=== PATIENT | female | born 1965 | race African-American/Black ===

== ENCOUNTER → 2016-10-09 | Outpatient (CLI) | payer OTHER ==
--- NOTE | 2016-10-09 16:57 | WOMENS IMAGING REPORT ---
EXAM DESCRIPTION: BILAT SCREENING MAMMO W/CAD COMPLETED DATE/TIME: 10/09/2016 11:37 am REASON FOR STUDY: Z12.31 ROUTINE SCREENING MAMMO Z12.31 ENCNTR SCREEN MAMMOGRAM FOR MALIGNANT NEOPL ASM OF DEBBIE COMPARISON: Multiple since 2008 TECHNIQUE: Standard craniocaudal and mediolateral oblique views of each breast recorded using p3dsystemsa l acquisition. LIMITATIONS: None. FINDINGS: Findings present which are benign by mammographic criteria. No suspicious masses, calcifi cations or architectural distortion. Read with the assistance of CAD. .[facility] - R2 Cenova Version 1.3 .[facility] Imaging - R2 Cenova Version 1.[address] Imaging - R2 Cenova Version 2.4 .[facility] - R2 Cenova Version 2.4 .[facility] - R2 Cost Reduction Engineer Version 9.2 Benign mammographic findings may include one or more of the following: Smooth masses, popcorn/rim/co arse calcifications, asymmetries, post-procedure changes, and lesions with long-standing stability. BREAST DENSITY: b. There are scattered areas of fibroglandular density. BIRAD: 2 BENIGN FINDING(S) RECOMMENDATION: ROUTINE SCREENING COMMENT: PATIENT NOTIFIED BY LETTER. The [employer] recommends an annual screening mammogram for women aged 40 years or over. Each patient will receive a reminder prior to the anniversary date of her mammogram. The [employer] (ACR) has developed recommendations for screening MRI of the breast s in certain patient populations, to be used in conjunction with mammography. Breast MRI surveillanc e may be appropriate for women with more than 20% lifetime risk of developing breast cancer as deter mined by genetic testing, significant family history of the disease, or history of mantle radiation f or Hodgkins Disease. ACR Practice Guidelines 2008. TECHNICAL DOCUMENTATION: FINDING NUMBER: (1) ASSESSMENT: (1) JOB ID: [id number] [employer]- All Rights Reserved
== END ==
LOC: WI 11:14
PROVIDERS: ATTEND Surgery
DX: Z12.31 Encounter for screening mammogram for malignant neoplasm of breast (principal)
CPT/HCPCS: 77067; G0202

== ENCOUNTER → 2017-10-14 | Outpatient (CLI) | payer OTHER ==
--- NOTE | 2017-10-14 13:45 | WOMENS IMAGING REPORT ---
EXAM DESCRIPTION: BILAT SCREENING MAMMO W/CAD COMPLETED DATE/TIME: 10/14/2017 1:29 pm REASON FOR STUDY: ROUTINE SCREENING; Z12.31 Z12.31 ENCNTR SCREEN MAMMOGRAM FOR MALIGNANT NEOPLASM O F DEBBIE COMPARISON: [id number] TECHNIQUE: Standard craniocaudal and mediolateral oblique views of each breast recorded using Adbongoa l acquisition. LIMITATIONS: None. FINDINGS: No masses, calcifications or architectural distortion. No areas of suspicion. Read with the assistance of CAD. .[facility] - R2 Cenova Version 1.3 .[facility] Imaging - R2 Cenova Version 1.3 .[facility] Imaging - R2 Cenova Version 2.4 .[facility] [place] - R2 Cenova Version 2.4 .[facility] - R2 Labor Mediator Version 9.2 IMPRESSION: NORMAL MAMMOGRAM. BIRADS 1. BREAST DENSITY: b. There are scattered areas of fibroglandular density. BIRAD: 1 NEGATIVE RECOMMENDATION: ROUTINE SCREENING COMMENT: The patient has been notified of the results by letter per SA requirements. Additional no tification policies are in place for contacting patient with suspicious or incomplete findings. Quality ID #[id number]: The [employer] recommends an annual screening mammogram for women aged 40 years or over. This facility utilizes a reminder system to ensure that all patients receive reminder letters, and/or direct phone calls for appointments. This includes reminders for routine scr eening mammograms, diagnostic mammograms, or other Breast Imaging Interventions when appropriate. Th is patient will be placed in the appropriate reminder system. The [employer] (ACR) has developed recommendations for screening MRI of the breast s in certain patient populations, to be used in conjunction with mammography. Breast MRI surveillanc e may be appropriate for women with more than 20% lifetime risk of developing breast cancer as deter mined by genetic testing, significant family history of the disease, or history of mantle radiation f or Hodgkins Disease. ACR Practice Guidelines 2008. TECHNICAL DOCUMENTATION: FINDING NUMBER: (1) ASSESSMENT: (1) JOB ID: [id number] [employer]- All Rights Reserved
== END ==
LOC: WI 13:07
PROVIDERS: ATTEND Surgery
DX: Z12.31 Encounter for screening mammogram for malignant neoplasm of breast (principal)
CPT/HCPCS: 77067

== ENCOUNTER → 2017-12-18 | Outpatient (CLI) | payer OTHER ==
--- NOTE | 2017-12-18 09:21 | RADIOLOGY REPORT (SQ) ---
EXAM DESCRIPTION: CHEST PA/LATERAL COMPLETED DATE/TIME: 12/18/2017 9:06 am REASON FOR STUDY: TUBERCULOSIS OF LUNG COMPARISON: None. EXAM PARAMETERS: NUMBER OF VIEWS: two views TECHNIQUE: Digital Frontal and Lateral radiographic views of the chest acquired. RADIATION DOSE: NA LIMITATIONS: none FINDINGS: LUNGS AND PLEURA: No opacities, masses or pneumothorax. No pleural effusion. MEDIASTINUM AND HILAR STRUCTURES: No masses or contour abnormalities. HEART AND VASCULAR STRUCTURES: Heart normal size. No evidence for failure. BONES: No acute findings. HARDWARE: None in the chest. OTHER: No other significant finding. IMPRESSION: NO SIGNIFICANT RADIOGRAPHIC FINDING IN THE CHEST. TECHNICAL DOCUMENTATION: JOB ID: [id number] [employer]- All Rights Reserved Reading location - IP/workstation name: [email or web address]
== END ==
LOC: OD 08:54
PROVIDERS: ATTEND Internal Medicine
DX: A15.0 Tuberculosis of lung (principal)
CPT/HCPCS: 71046

== ENCOUNTER 2018-02-13 20:00 | Emergency (ER) | payer OTHER ==
--- NOTE | 2018-02-13 21:40 | ER Document Report ---
ED GI/ - General Chief Complaint: Vaginal Bleeding Stated Complaint: VAGINAL BLEEDING, DIZZY Time Seen by Provider: 02/13/18 21:36 Notes: The patient is a 52-year-old female, past medical history hysterectomy, presents with 4 hours of vaginal bleeding. She has not had recent intercourse and now a blood thinners. Denies lightheadedness, syncope or dysuria. TRAVEL OUTSIDE OF THE [place] IN LAST 30 DAYS: No - Related Data Allergies/Adverse Reactions: adhesive tape [Adhesive Tape] Allergy (Unknown, Verified 03/20/11 06:24) iodine [Iodine] Allergy (Unknown, Verified 03/20/11 06:23) Penicillins Allergy (Unknown, Verified 03/20/11 06:22) Shellfish * [Shellfish] Allergy (Unknown, Verified 03/20/11 06:24) Sulfa (Sulfonamide Antibiotics) Allergy (Unknown, Verified 03/20/11 06:23) tramadol [Tramadol] Adverse Reaction (Verified 04/22/15 04:11) Facial swelling beestings Allergy (Uncoded 02/13/18 20:03) Past Medical History - General Information source: Patient - Social History Smoking Status: Unknown if Ever Smoked Family History: Reviewed & Not Pertinent - Past Medical History Cardiac Medical History: Denies: Hx Coronary Artery Disease, Hx Heart Attack, Hx Hypertension Pulmonary Medical History: Denies: Hx Asthma, Hx Bronchitis, Hx COPD, Hx Pneumonia Neurological Medical History: Reports: Hx Cerebrovascular Accident, Hx Seizures - LAST SEIZURE 04/11/11 Musculoskeltal Medical History: Reports Hx Arthritis Past Surgical History: Reports: Hx Hysterectomy, Hx Orthopedic Surgery. Denies : Hx Pacemaker - Immunizations Immunizations up to date: Yes Hx Diphtheria, Pertussis, Tetanus Vaccination: No Review of Systems - Review of Systems Notes: REVIEW OF SYSTEMS: CONSTITUTIONAL: -fevers, -chills EENT: -eye pain, -difficulty swallowing, -nasal congestion CARDIOVASCULAR: -chest pain, -syncope. RESPIRATORY: -cough, -SOB GASTROINTESTINAL: -abdominal pain, -nausea, -vomiting, -diarrhea GENITOURINARY: -dysuria, -hematuria, +vaginal bleeding MUSCULOSKELETAL: -back pain, -neck pain SKIN: -rash or skin lesions. HEMATOLOGIC: -easy bruising or bleeding. LYMPHATIC: -swollen, enlarged glands. NEUROLOGICAL: -altered mental status or loss of consciousness, -headache, - neurologic symptoms PSYCHIATRIC: -anxiety, -depression. ALL OTHER SYSTEMS REVIEWED AND NEGATIVE. Physical Exam - Vital signs Vitals: Temp Pulse Resp BP Pulse Ox 98.5 F 78 16 146/86 H 97 02/13/18 20:10 02/13/18 20:10 02/13/18 20:10 02/13/18 20:10 02/13/18 20:10 - Notes Notes: PHYSICAL EXAMINATION: GENERAL: Well-appearing, well-nourished and in no acute distress. HEAD: Atraumatic, normocephalic. EYES: Pupils equal round and reactive to light, extraocular movements intact, sclera anicteric, conjunctiva are normal. ENT: nares patent, oropharynx clear without exudates. Moist mucous membranes. NECK: Normal range of motion, supple without lymphadenopathy LUNGS: Breath sounds clear to auscultation bilaterally and equal. No wheezes rales or rhonchi. HEART: Regular rate and rhythm without murmurs ABDOMEN: Soft, nontender, normoactive bowel sounds. No guarding, no rebound. No masses appreciated. : No vaginal bleeding, no lacerations, non-tender adnexa or suprapubic region EXTREMITIES: Normal range of motion, no pitting or edema. No cyanosis. NEUROLOGICAL: Cranial nerves grossly intact. Normal speech, normal gait. Normal sensory and motor exams. PSYCH: Normal mood, normal affect. SKIN: Warm, Dry, normal turgor, no rashes or lesions noted. Course - Re-evaluation Re-evalutation: Patient with no vaginal bleeding and no tenderness. She does not have a uterus. Hemoglobin is normal and blood work is unremarkable, other than slight hypokalemia. Provide her with follow-up at [facility] for further evaluation and treatment. - Vital Signs Vital signs: Temp Pulse Resp BP Pulse Ox 98.5 F 78 16 146/86 H 97 02/13/18 20:10 02/13/18 20:10 02/13/18 20:10 02/13/18 20:10 02/13/18 20:10 - Laboratory Result Diagrams: 02/13/18 21:30 02/13/18 21:30 Laboratory results interpreted by me: 02/13/18 02/13/18 21:30 21:30 Hgb 11.4 L Hct 35.2 L MCV 79 L MCH 25.5 L RDW 15.9 H Potassium 3.4 L Discharge - Discharge Clinical Impression: Vaginal bleeding Condition: Stable Disposition: HOME, SELF-CARE Additional Instructions: VAGINAL BLEEDING: You are having an episode of abnormal bleeding. Causes of abnormal vaginal bleeding can include miscarriage or tubal , tumors such as cancer or benign fibroids, medication effects, or hormone imbalance. Testing can eliminate unsuspected , tumors, or infection as a cause. "Dysfunctional uterine bleeding" is due to hormone imbalance, and is especially common at times when the normal cycle is disturbed -- whether by recent , use of control pills or hormones, or impending menopause. If the bleeding is innocent, most commonly a short course of hormones is given to restore the uterus to normal. Sometimes, the normal menstrual cycle corrects itself naturally. Sometimes , brief hormone therapy, or even a D&C is required. Your physician will advise you. Treatment for anemia may be required if bleeding is severe. You should rest and avoid intercourse until the bleeding is controlled. Call the doctor or return for re-examination if you feel faint, have increasing pain, or have a major increase in the amount of bleeding. NORMAL EXAM AND WORKUP: At this time, except for vaginal bleeding, your examination and workup show no significant abnormality. No significant abnormal physical findings were noted. All laboratory, EKG, and imaging (x-ray, CT scans, ultrasound) studies that were ordered show no significant abnormality. Although your examination and all studies that were ordered showed no significant abnormal finding, there are no examinations and no studies that are 100% accurate. There is always the possibility that some abnormality could exist and not be detected with physical examination or within the limits and capabilities of laboratory and other studies. You should return or follow up as you were instructed on your visit today for further evaluation if your symptoms do not resolve. FOLLOW-UP CARE: If you have been referred to a physician for follow-up care, call the physician s office for an appointment as you were instructed or within the next two days. If you experience worsening or a significant change in your symptoms (very heavy bleeding with large clots of blood, passage of tissue, more severe abdominal / pelvic pain or cramping, feeling faint or severe weakness, fever, etc.), notify the physician immediately or return to the Emergency Department at any time for re-evaluation. OBSTETRIC-GYNECOLOGIC ([facility]ICAL [facility]) [facility]IANS [facility] [place]: The [address] [place] [phone] [facility] [address] [place], [place] [phone] Forms: Elevated Blood Pressure Referrals: GILMER EVANS MD [Primary Care Provider] - Follow up as needed PENNY JUNIOR MD [ACTIVE STAFF] - Follow up as needed
[2018-02-13 21:49] LABS: ABSOLUTE BASOPHILS # (AUTO) 0.1 10^3/uL (0.0-0.2); ABSOLUTE EOSINOPHILS # (AUTO) 0.2 10^3/uL (0.0-0.6); ABSOLUTE LYMPHOCYTES (AUTO) 2.4 10^3/uL (0.5-4.7); ABSOLUTE MONOCYTES (AUTO) 0.7 10^3/uL (0.1-1.4); ABSOLUTE NEUT (AUTO) 4.4 10^3/uL (1.7-8.2); BASOPHILS % (AUTO) 0.7 % (0-2); HEMATOCRIT 35.2 % (36.0-47.0); HEMOGLOBIN 11.4 g/dL (12.0-15.5); LYMPHOCYTES % (AUTO) 31.3 % (13-45); MEAN CORPUSCULAR HEMOGLOBIN 25.5 pg (27.0-33.4); MEAN CORPUSCULAR HGB CONC 32.4 g/dL (32.0-36.0); MEAN CORPUSCULAR VOLUME 79 fl (80-97); MONOCYTES % (AUTO) 8.8 % (3-13); PLATELET COUNT 253 10^3/uL (150-450); RED BLOOD COUNT 4.48 10^6/uL (3.72-5.28); RED CELL DISTRIBUTION WIDTH 15.9 % (11.5-14.0); SEGMENTED NEUTROPHILS % (AUTO) 56.2 % (42-78); TOTAL CELLS COUNTED % (AUTO) 100 %; WHITE BLOOD COUNT 7.8 10^3/uL (4.0-10.5)
[2018-02-13 21:53] LABS: ANION GAP 11 (5-19); BLOOD UREA NITROGEN 14 mg/dL (7-20); CALCIUM 9.5 mg/dL (8.4-10.2); CARBON DIOXIDE 29 mmol/L (22-30); CHLORIDE 103 mmol/L (98-107); GLUCOSE 92 mg/dL (75-110); POTASSIUM 3.4 mmol/L (3.6-5.0); SODIUM 142.9 mmol/L (137-145)
[2018-02-13 22:13] VITALS: BP 150/8
== END 2018-02-13 22:10 | disposition home or self-care (01) ==
LOC: ER 20:00
DX: N93.9 Abnormal uterine and vaginal bleeding, unspecified (principal); E87.6 Hypokalemia; Z90.710 Acquired absence of both cervix and uterus; Z91.048 Other nonmedicinal substance allergy status; Z88.0 Allergy status to penicillin; Z88.2 Allergy status to sulfonamides; Z91.030 Bee allergy status; Z91.013 Allergy to seafood
CPT/HCPCS: 36415; 80048; 85025; 99284

== ENCOUNTER → 2018-02-14 | Outpatient (CLI) | payer OTHER ==
--- NOTE | 2018-02-14 10:14 | RADIOLOGY REPORT (SQ) ---
EXAM DESCRIPTION: CT ABD/PELVIS NO ORAL OR IV COMPLETED DATE/TIME: 02/14/2018 10:05 am REASON FOR STUDY: HEMATURIA (R31.9) R31.9 HEMATURIA, UNSPECIFIED COMPARISON: 04/04/2015. TECHNIQUE: CT scan of the abdomen and pelvis performed without intravenous or oral contrast. Images reviewed with lung, soft tissue, and bone windows. Reconstructed coronal and sagittal MPR images revi ewed. All images stored on PACS. All CT scanners at this facility use dose modulation, iterative reconstruction, and/or weight based d osing when appropriate to reduce radiation dose to as low as reasonably achievable (ALARA). [facility]: Dose Right [facility]: CareDose [facility]: Dose Right [facility]: Teradose 4D [facility]: Smart Technologies RADIATION DOSE: CT Rad equipment meets quality standard of care and radiation dose reduction techniq ues were employed. CTDIvol: 8.1 mGy. DLP: 452 mGy-cm.mGy. LIMITATIONS: None. FINDINGS: LOWER CHEST: No significant findings. No nodules or infiltrates. NON-CONTRASTED LIVER, SPLEEN, ADRENALS: Evaluation limited by lack of IV contrast. No identified sign ificant masses. PANCREAS: No masses. No peripancreatic inflammatory changes. GALLBLADDER: Surgically absent. RIGHT KIDNEY AND URETER: No suspicious masses. Assessment limited by lack of IV contrast. No signif icant calcifications. No hydronephrosis or hydroureter. LEFT KIDNEY AND URETER: No suspicious masses. Assessment limited by lack of IV contrast. No signifi cant calcifications. No hydronephrosis or hydroureter. AORTA AND RETROPERITONEUM: No aneurysm. No retroperitoneal masses or adenopathy. BOWEL AND PERITONEAL CAVITY: No obvious masses or inflammatory changes. No free fluid. APPENDIX: Normal. PELVIS, BLADDER, AND ABDOMINAL WALL:Colonic diverticulosis. No abnormal masses. No free fluid. Bladd er normal. BONES: No significant findings. OTHER: No other significant finding. IMPRESSION: COLONIC DIVERTICULOSIS. NO CT FINDINGS OF DIVERTICULITIS. NO OTHER SIGNIFICANT OR ACUT E PROCESS IN THE ABDOMEN OR PELVIS. COMMENT: Quality ID # [id number]: Final reports with documentation of one or more dose reduction techniques (e.g., Automated exposure control, adjustment of the mA and/or kV according to patient size, use of iterative reconstruction technique) TECHNICAL DOCUMENTATION: JOB ID: [id number] [employer]- All Rights Reserved Reading location - IP/workstation name: [email or web address]
== END ==
LOC: RAD 09:41
PROVIDERS: ATTEND Internal Medicine
DX: R31.9 Hematuria, unspecified (principal); K57.30 Diverticulosis of large intestine without perforation or abscess without bleeding
CPT/HCPCS: 74176

== ENCOUNTER → 2018-11-22 | Outpatient (CLI) | payer OTHER ==
--- NOTE | 2018-11-22 10:43 | RADIOLOGY REPORT (SQ) ---
EXAM DESCRIPTION: CT HEAD WITHOUT COMPLETED DATE/TIME: 11/22/2018 9:27 am REASON FOR STUDY: HEADACHE R51 HEADACHE COMPARISON: None. TECHNIQUE: Axial images acquired through the brain without intravenous contrast. Images reviewed wi th bone, brain and subdural windows. Additional sagittal and coronal reconstructions were generated. Images stored on PACS. All CT scanners at this facility use dose modulation, iterative reconstruction, and/or weight based d osing when appropriate to reduce radiation dose to as low as reasonably achievable (ALARA). [facility]: Dose Right [facility]: CareDose [facility]: Dose Right [facility]: Teradose 4D [facility]: [email or web address] RADIATION DOSE: CT Rad equipment meets quality standard of care and radiation dose reduction techniq ues were employed. CTDIvol: 53.2 mGy. DLP: 911 mGy-cm. mGy. LIMITATIONS: None. FINDINGS: VENTRICLES: Normal size and contour. CEREBRUM: No masses. No hemorrhage. No midline shift. No evidence for acute infarction. Normal gra y/white matter differentiation. No areas of low density in the white matter. CEREBELLUM: No masses. No hemorrhage. No alteration of density. No evidence for acute infarction. EXTRAAXIAL SPACES: No fluid collections. No masses. ORBITS AND GLOBE: No intra- or extraconal masses. Normal contour of globe without masses. CALVARIUM: No fracture. PARANASAL SINUSES: No fluid or mucosal thickening. SOFT TISSUES: No mass or hematoma. OTHER: No other significant finding. IMPRESSION: NORMAL BRAIN CT WITHOUT CONTRAST. EVIDENCE OF ACUTE STROKE: NO. COMMENT: Quality ID # [id number]: Final reports with documentation of one or more dose reduction techniques (e.g., Automated exposure control, adjustment of the mA and/or kV according to patient size, use of iterative reconstruction technique) TECHNICAL DOCUMENTATION: JOB ID: [id number] [employer]- All Rights Reserved Reading location - IP/workstation name: [email or web address]
== END ==
LOC: RAD 09:02
PROVIDERS: ATTEND Internal Medicine
DX: R51 Headache (principal)
CPT/HCPCS: 70450

== ENCOUNTER 2018-12-11 22:36 | Emergency (ER) | payer OTHER ==
--- NOTE | 2018-12-12 01:20 | ER Document Report ---
ED General - General Chief Complaint: Syncope Stated Complaint: FALL RIGHT SHOULDER Time Seen by Provider: 12/12/18 01:18 Primary Care Provider: GILMER EVANS MD [Primary Care Provider] - 12/15/18 Notes: Patient is a 53-year-old female who presents with complaint of syncopal episode. Patient says that she had gotten home from basketball game. She said she took a shower. She said when she got the shower started to feel hot and sweaty and unwell. She then felt a sudden pop in her head and severe pain in her head and then passed out. Family came over and found her laying on the bed. They then called able to do brought here. She cannot member the exact time that the headache and syncopal episode occurred. She says she now has a headache as well as pain in the left shoulder and left elbow. She has had previous passing out episodes however is been a couple years since the last time she had a passing out episode. She also says that she had little numbness going into her left arm when tonight's episode occurred. She denies chest pain or shortness of breath. No other complaints at this time. TRAVEL OUTSIDE OF THE [place] IN LAST 30 DAYS: No - Related Data Allergies/Adverse Reactions: adhesive tape [Adhesive Tape] Allergy (Unknown, Verified 03/20/11 06:24) iodine [Iodine] Allergy (Unknown, Verified 03/20/11 06:23) Penicillins Allergy (Unknown, Verified 03/20/11 06:22) Shellfish * [Shellfish] Allergy (Unknown, Verified 03/20/11 06:24) Sulfa (Sulfonamide Antibiotics) Allergy (Unknown, Verified 03/20/11 06:23) tramadol [Tramadol] Adverse Reaction (Verified 04/22/15 04:11) Facial swelling beestings Allergy (Uncoded 02/13/18 20:03) Past Medical History - Social History Smoking Status: Never Smoker Frequency of alcohol use: None Drug Abuse: None Family History: Reviewed & Not Pertinent - Past Medical History Cardiac Medical History: Denies: Hx Coronary Artery Disease, Hx Heart Attack, Hx Hypertension Pulmonary Medical History: Denies: Hx Asthma, Hx Bronchitis, Hx COPD, Hx Pneumonia Neurological Medical History: Reports: Hx Cerebrovascular Accident, Hx Seizures - LAST SEIZURE 04/11/11 Renal/ Medical History: Denies: Hx Peritoneal Dialysis Musculoskeletal Medical History: Reports Hx Arthritis Past Surgical History: Reports: Hx Hysterectomy, Hx Orthopedic Surgery. Denies: Hx Pacemaker - Immunizations Immunizations up to date: Yes Hx Diphtheria, Pertussis, Tetanus Vaccination: No Review of Systems - Review of Systems Notes: My Normal Review Basic REVIEW OF SYSTEMS: CONSTITUTIONAL : Denies fever, chills, or sweats. Denies recent illness. EENT: Denies eye, ear, throat, or mouth pain or symptoms. Denies nasal or sinus congestion. CARDIOVASCULAR: Denies chest pain. RESPIRATORY: Denies cough, cold, or chest congestion. Denies shortness of claudio ath, difficulty breathing, or wheezing. GASTROINTESTINAL: Denies abdominal pain. Denies nausea, vomiting, or diarrhea. MUSCULOSKELETAL: Denies neck or back pain or joint pain or swelling. SKIN: Denies rash or skin lesions. HEMATOLOGIC : Denies easy bruising or bleeding. LYMPHATIC: Denies swollen, enlarged glands. NEUROLOGICAL: Had a syncopal episode. Has a headache. Denies weakness or p aralysis or loss of use of either side. Denies problems with gait or speech. Had some brief numbness to the left arm which has since resolved. ALL OTHER SYSTEMS REVIEWED AND NEGATIVE. Physical Exam - Vital signs Vitals: Resp BP Pulse Ox 20 136/85 H 100 12/11/18 23:00 12/11/18 23:00 12/11/18 23:00 - Notes Notes: General Appearance: Well nourished, alert, cooperative, no acute distress, moderate obvious discomfort. Vitals: reviewed, See vital signs table. Head: no swelling or tenderness to the head Eyes: PERRL, EOMI, Conjuctiva clear Mouth: No decreasd moisture Lungs: No wheezing, No rales, No rhonci, No accessory muscle use, good air exchange bilaterally. Heart: Normal rate, Regular rythm, No murmur, no rub Abdomen: Normal BS, soft, No rigidity, No abdominal tenderness, No guarding, no rebound, no abdominal masses, no organomegaly Extremities: strength 5/5 in all extremities, good pulses in all extremities, no swelling or tenderness in the extremities with exception of pain to palpation over lateral left elbow and pain over proximal humerus and left shoulder. She is able to put shoulder and elbow with range of motion but does have some pain in doing so. No pain into the hand or wrist. Other 3 extremities are nontender., no edema. Skin: warm, dry, appropriate color, no rash Neuro: speech clear, oriented x 3, normal affect, responds appropriately to questions. Cranial nerves II through XII are intact. Distal sensation intact. Course - Re-evaluation Re-evalutation: 12/12/18 01:36 Patient symptoms are concerning for potential subarachnoid hemorrhage. I therefore ordered a CT scan and informed the charge nurse to have the patient sent over for CT scan immediately. 12/12/18 03:22 Scan of the head is negative. I talked to the patient prior to give her any medications to explain to her that we need to do further testing for rule out possibility of subarachnoid hemorrhage. I informed her that CT scan without contrast is not 100% ruling out subarachnoid hemorrhage when is not done within the first 3-4 hours. It is difficult to tell if this scan was within the first 3-4 hours by suspect is not based on patient's history. I informed the patient that there is too for the test we can do. I informed her CT of the head can be performed. Informed her this is sensitive ruling out cerebral aneurysm but not 100% sensitive in ruling out subarachnoid hemorrhage. I informed her that the one test that is 100% sensitive his lumbar puncture and as well recommend. Patient says absolutely no to a lumbar puncture. She says she is familiar with what the test is and does not want this performed. She says that she would rather go forward with a CTA even though is not 100% sensitive. We will treat the patient's headache. We will go forward with a CT of the head. 12/12/18 06:49 CT of the head was negative. After treatment of the headache with medications it is gone. Says he feels much better. Patient again is aware that the only test 100% sensitive to rule out subarachnoid hemorrhage is a lumbar puncture. She said she would certainly not consider lumbar puncture. She is feeling well and looks well. This time will discharge home by strongly encouraged to return to ER immediately if she has any recurrent episodes of passing out, recurrent headaches, or feels unwell in any way. Patient agrees with plan and will be discharged home. Dictation of this chart was performed using voice recognition software; therefore, there may be some unintended grammatical errors. - Vital Signs Vital signs: Temp Pulse Resp BP Pulse Ox 98.5 F 15 97/55 L 99 12/11/18 23:01 12/12/18 05:40 12/12/18 05:40 12/12/18 05:40 - Laboratory Result Diagrams: 12/11/18 22:50 12/11/18 22:50 Laboratory results interpreted by me: 12/11/18 12/11/18 22:50 22:50 MCV 79 L MCH 26.3 L RDW 15.3 H Potassium 3.3 L Est GFR (Non-Af Amer) 54 L Calcium 10.3 H - EKG Interpretation by Me Additional EKG results interpreted by me: 12/12/18 01:19 EKG is reviewed and interpreted by me. EKG shows sinus rhythm with a rate of [address] segment elevation or depression. Patient has some deep T wave inversions in leads V3 however she has similar inversions from her previous EKG from April 21, 2015. MO interval, QRS duration, QT intervals are within normal range. Discharge - Discharge Clinical Impression: Syncope Qualifiers: Syncope type: unspecified Qualified Code(s): R55 - Syncope and collapse Headache Qualifiers: Headache type: unspecified Headache chronicity pattern: acute headache Intractability: not intractable Qualified Code(s): R51 - Headache Arm contusion Qualifiers: Encounter type: initial encounter Laterality: left Qualified Code(s): S40.022A - Contusion of left upper arm, initial encounter Condition: Good Disposition: HOME, SELF-CARE Additional Instructions: Please rest over the next 24 hours. Please drink clear liquids. Please return to the ER if you have recurrent headaches, any chest pain, or recurrent episodes of passing out. Your CT scan of your head today did not show any evidence of an aneurysm. As discussed with you this is not 100% sensitive in ruling out a small bleed and therefore you need to have a low threshold to return to the ER for any recurrence of your symptoms.Please follow up with your doctor on Saturday for reevaluation. Referrals: GILMER EVANS MD [Primary Care Provider] - 12/15/18
[2018-12-12 01:43] LABS: ABSOLUTE EOSINOPHILS # (AUTO) 0.1 10^3/uL (0.0-0.6); ABSOLUTE LYMPHOCYTES (AUTO) 1.8 10^3/uL (0.5-4.7); ABSOLUTE MONOCYTES (AUTO) 0.9 10^3/uL (0.1-1.4); ABSOLUTE NEUT (AUTO) 6.1 10^3/uL (1.7-8.2); BASOPHILS % (AUTO) 0.5 % (0-2); EOSINOPHILS % (AUTO) 0.8 % (0-6); HEMATOCRIT 36.1 % (36.0-47.0); HEMOGLOBIN 12.1 g/dL (12.0-15.5); LYMPHOCYTES % (AUTO) 20.6 % (13-45); MEAN CORPUSCULAR HEMOGLOBIN 26.3 pg (27.0-33.4); MEAN CORPUSCULAR HGB CONC 33.4 g/dL (32.0-36.0); MEAN CORPUSCULAR VOLUME 79 fl (80-97); MONOCYTES % (AUTO) 9.6 % (3-13); PLATELET COUNT 292 10^3/uL (150-450); RED CELL DISTRIBUTION WIDTH 15.3 % (11.5-14.0); SEGMENTED NEUTROPHILS % (AUTO) 68.5 % (42-78); TOTAL CELLS COUNTED % (AUTO) 100 %; WHITE BLOOD COUNT 8.9 10^3/uL (4.0-10.5)
[2018-12-12 01:52] LABS: ANION GAP 13 (5-19); BLOOD UREA NITROGEN 19 mg/dL (7-20); CALCIUM 10.3 mg/dL (8.4-10.2); CARBON DIOXIDE 29 mmol/L (22-30); CHLORIDE 99 mmol/L (98-107); GLUCOSE 106 mg/dL (75-110); POTASSIUM 3.3 mmol/L (3.6-5.0); SODIUM 140.5 mmol/L (137-145)
[2018-12-12 02:05] LABS: INTERNATIONAL RATION (INR) 0.92; PROTHROMBIN TIME 12.8 SEC (11.4-15.4)
[2018-12-12 02:06] LABS: PARTIAL THROMBOPLASTIN TIME 25.8 SEC (23.5-35.8)
--- NOTE | 2018-12-12 02:13 | RADIOLOGY REPORT (SQ) ---
EXAM DESCRIPTION: CT HEAD WITHOUT IV CONTRAST COMPLETED DATE/TME: 12/12/2018 01:34 CLINICAL HISTORY: 53 years, Female, headache COMPARISON: CT head 11/22/2018 TECHNIQUE: Axial images of the head were performed without the use of intravenous contrast, with sagittal and coronal reformatted images. Images stored on PACS. All CT scanners at this facility use dose modulation, iterative reconstruction, and/or weight based dosing when appropriate to reduce radiation dose to as low as reasonably achievable (ALARA). [facility]: Dose Right [facility]: CareDose [facility]: Dose Right [facility]: Teradose 4D [facility]: Code Scouts LIMITATIONS: None. FINDINGS: No evidence of acute hemorrhage or infarct. No evidence of mass or hydrocephalus. The visualized paranasal sinuses are clear. There is no significant change, as compared with the prior CT scan. IMPRESSION: No acute finding. TECHNICAL DOCUMENTATION: Quality ID # [id number]: Final reports with documentation of one or more dose reduction techniques (e.g., Automated exposure control, adjustment of the mA and/or kV according to patient size, use of iterative reconstruction technique) copyright 2011 [employer]- All Rights Reserved
[2018-12-12] MEDS ORDERED: NORMAL SALINE 1000 ML 1,000 ML IV ONE (03:21)
[2018-12-12] MEDS ORDERED: DIPHENHYDRAMINE HCL 50 MG/ML VIAL IV ONE (03:21)
[2018-12-12] MEDS ORDERED: METOCLOPRAMIDE HCL INJ/PF 10 MG/2 ML SDV IV ONE (03:22)
--- NOTE | 2018-12-12 03:31 | RADIOLOGY REPORT (SQ) ---
EXAM DESCRIPTION: XR ELBOW 1-2 VIEWS COMPLETED DATE/TME: 12/12/2018 01:35 CLINICAL HISTORY: 53 years, Female, trauma COMPARISON: None. NUMBER OF VIEWS: Four TECHNIQUE: Four views of the left elbow LIMITATIONS: None. FINDINGS: There is no acute fracture or dislocation. There is no joint effusion. No radiopaque foreign body. IMPRESSION: No acute fracture or dislocation copyright 2010 [employer]- All Rights Reserved
--- NOTE | 2018-12-12 03:32 | RADIOLOGY REPORT (SQ) ---
EXAM DESCRIPTION: XR SHOULDER 2 OR MORE VIEWS COMPLETED DATE/TME: 12/11/2018 22:49 CLINICAL HISTORY: 53 years, Female, fall COMPARISON: None. NUMBER OF VIEWS: Three TECHNIQUE: Three views of left shoulder LIMITATIONS: None. FINDINGS: There is no acute fracture or dislocation. No large soft tissue swelling. The glenohumeral and AC joints appear intact. IMPRESSION: No acute fracture or dislocation copyright 2010 [employer]- All Rights Reserved
[2018-12-12] MEDS ORDERED: METHYLPREDNISOLONE INJ 125 MG/2 ML SDV IV ONE (05:14)
[2018-12-12] MEDS ORDERED: FAMOTIDINE INJ/PF 20 MG/2 ML SDV IV ONE (05:14)
--- NOTE | 2018-12-12 06:17 | RADIOLOGY REPORT (SQ) ---
EXAM DESCRIPTION: CT HEAD ANGIOGRAPHY WITH IV CONTRAST COMPLETED DATE/TME: 12/12/2018 03:21 CLINICAL HISTORY: 53 years Female, headache COMPARISON: 12/12/18 TECHNIQUE: IV contrast. Coronal and sagittal reformat. This exam was performed according to our departmental dose-optimization program, which includes automated exposure control, adjustment of the mA and/or kV according to patient size and/or use of iterative reconstruction technique. FINDINGS: No hemorrhage or infarct. No mass, mass effect, or midline shift. No enhancement abnormality. Brain and extra-axial structures appear otherwise intact. IMPRESSION: No acute findings.
--- NOTE | 2018-12-12 08:02 | EKG REPORT ---
SEVERITY:- ABNORMAL ECG - SINUS RHYTHM NONSPECIFIC T ABNORMALITIES, DIFFUSE LEADS : Confirmed by: Surinder James MD 12-Dec-2018 08:01:05
[2018-12-12 08:04] VITALS: BP 108/68
== END 2018-12-12 07:35 | disposition home or self-care (01) ==
LOC: ER 22:36
DX: R55 Syncope and collapse (principal); R51 Headache; S40.022A Contusion of left upper arm, initial encounter; W19.XXXA Unspecified fall, initial encounter; Z88.0 Allergy status to penicillin; Z88.6 Allergy status to analgesic agent; Z88.2 Allergy status to sulfonamides; Z91.013 Allergy to seafood; Z90.710 Acquired absence of both cervix and uterus
CPT/HCPCS: 93005; 99284; 36415; 85025; 85610; 85730; 80048; 73070; 73030; 70450; 70496; 93010; J1200; J2930; J2765; J7030; S0028

== ENCOUNTER → 2019-01-06 | Outpatient (CLI) | payer OTHER ==
--- NOTE | 2019-01-06 14:24 | WOMENS IMAGING REPORT ---
EXAM DESCRIPTION: 3D SCREENING MAMMO BILAT COMPLETED DATE/TIME: 01/06/2019 10:41 am REASON FOR STUDY: Z12.31 ENCOUNTER FOR SCREENING MAMMOGRAM FOR MALIGNANT NEOPLASM OF BREAST Z12.31 ENCNTR SCREEN MAMMOGRAM FOR MALIGNANT NEOPLASM OF DEBBIE COMPARISON: Multiple since 2008 TECHNIQUE: Standard craniocaudal and mediolateral oblique views of each breast recorded using digita l acquisition and breast tomosynthesis. LIMITATIONS: None. FINDINGS: Findings present which are benign by mammographic criteria. No suspicious masses, calcific ations or architectural distortion. Pertinent benign findings: Benign-appearing breast calcifications bilaterally. Old left breast biops y left upper inner quadrant Read with the assistance of CAD. .[facility] - R2 [employer] Version 1.3 .[facility] Imaging - R2 Cenova Version 2.1 .[facility] - R2 Cenova Version 2.4 .[facility] - R2 Cenova Version 2.4 .[facility] - R2 [employer] Version 9.2 Benign mammographic findings may include one or more of the following: Smooth masses, popcorn/rim/coa rse calcifications, asymmetries, post-procedure changes, and lesions with long-standing stability. IMPRESSION: BENIGN MAMMOGRAPHIC FINDINGS. BIRADS 2 BREAST DENSITY: b. There are scattered areas of fibroglandular density. BIRAD: 2 BENIGN FINDING(S) RECOMMENDATION: ROUTINE SCREENING COMMENT: The patient has been notified of the results by letter per MQSA requirements. Additional no tification policies are in place for contacting patient with suspicious or incomplete findings. Quality ID #225: The [employer] recommends an annual screening mammogram for women aged 40 years or over. This facility utilizes a reminder system to ensure that all patients receive reminder letters, and/or direct phone calls for appointments. This includes reminders for routine scr eening mammograms, diagnostic mammograms, or other Breast Imaging Interventions when appropriate. Th is patient will be placed in the appropriate reminder system. The [employer] (ACR) has developed recommendations for screening MRI of the breast s in certain patient populations, to be used in conjunction with mammography. Breast MRI surveillanc e may be appropriate for women with more than 20% lifetime risk of developing breast cancer as deter mined by genetic testing, significant family history of the disease, or history of mantle radiation f or Hodgkins Disease. ACR Practice Guidelines 2008. DBT Technology DBT is a type of tomographic mammography. With conventional mammography, overlapping breast tissue ma y make lesions difficult to detect, even with good compression. DBT uses an x-ray tube that rotates a round the breast, taking images at different angles. These images are then combined to create thin sl ices of the breast that the radiologist can view as a 3D reconstruction. The [employer] Clear unit can perform full-field digital mammograms (2D imaging); or DBT (3D imaging); or both, in a combination mode that quickly performs both the mammogram and the tomosynthesis scan while the breast is still compressed. PQRS 6045F: Fluoroscopic imaging is not utilized for breast tomosynthesis. TECHNICAL DOCUMENTATION: FINDING NUMBER: (1) ASSESSMENT: (1) JOB ID: [id number] [employer]- All Rights Reserved Reading location - IP/workstation name: [email or web address]
== END ==
LOC: WI 10:02
PROVIDERS: ATTEND Internal Medicine
DX: Z12.31 Encounter for screening mammogram for malignant neoplasm of breast (principal); R92.0 Mammographic microcalcification found on diagnostic imaging of breast
CPT/HCPCS: 77063; 77067

== ENCOUNTER → 2019-02-19 | Outpatient (CLI) | payer OTHER ==
--- NOTE | 2019-02-19 15:59 | NEURO WORKBENCH EEG REPORT ---
EEG Report Patient: Reena De Jesus ID: [id number] Referring Doctor: Mamadou Saini Date: 02/19/2019 Reason for study: Evaluate Epileptiform activity Medications: Methotrexate, Amitriptyline, Losartan History: This is a 53 year old female with a history of HTN, headaches, and syncope. This EEG was requested for evaluation of epileptiform activity. EEG Interpretation: This EEG was recorded during wakefulness, stage I, and stage II sleep. The awake EEG is characterized by a well organized background with a well developed and reactive posterior dominant rhythm (PDR) of approximately 10 Hz. The remainder of the background consisted of low amplitude frontally predominant beta activity. The EEG is symmetric in amplitudes and frequencies. Photic stimulation resulted in good photic driving, and there was no epileptiform activity elicited with photic stimulation. Stage I sleep was achieved and characterized by slow rolling eye movements, slowing of the background rhythm by 1-2 Hz, and increased background theta activity. Stage II sleep was achieved and symmetric sleep spindles were noted. There were no epileptiform abnormalities (no sharp waves and no spikes). There were no seizures. The EKG showed a regular rhythm with typically approximately 60-65 beats per minute. EEG Impression: This EEG is within normal limits for age. There was no epileptiform activity or seizures. A single normal routine EEG does not rule out the possibility of epilepsy. If there is high clinical suspicion for epilepsy, then additional EEG evaluation should be considered with a sleep-deprived EEG or more prolonged EEG monitoring. INTERPRETING NEUROLOGIST: Andrew Ruggiero MD Board certified by the [place] in Neurology, Clinical Neurophysiology, and Sleep Medicine [facility]
== END ==
LOC: NEURO 13:09
PROVIDERS: ATTEND Pediatrics
DX: R51 Headache (principal); R55 Syncope and collapse
CPT/HCPCS: 95819

== ENCOUNTER → 2019-10-07 | Outpatient (CLI) | payer OTHER ==
--- NOTE | 2019-10-07 19:08 | RADIOLOGY REPORT (SQ) ---
EXAM DESCRIPTION: U/S NON OB PEL TV W/DOPPLER COMPLETED DATE/TIME: 10/07/2019 5:33 pm REASON FOR STUDY: (N95.0)POSTMENOPAUSAL BLEEDING N95.0 POSTMENOPAUSAL BLEEDING COMPARISON: 10/26/2008 TECHNIQUE: Dynamic and static grayscale images acquired of the pelvis via transvaginal approach and recorded on PACS. Additional selected color Doppler and spectral images recorded. LIMITATIONS: None. FINDINGS: UTERUS: Surgically absent. ENDOMETRIAL STRIPE: Absent. CERVIX: There must be a cervical stump, since according to the history a physician was doing a Pap sm ear. No abnormality is seen. RIGHT OVARY AND DOPPLER: Normal size. No worrisome masses. Normal arterial vascular flow without evid ence for torsion. LEFT OVARY AND DOPPLER: Ovary not seen. FREE FLUID: None noted. OTHER: No other significant finding. MEASUREMENTS: UTERUS: Absent ENDOMETRIAL STRIPE: Absent RIGHT OVARY: 1.8 x 1.3 x 2.1 cm. LEFT OVARY: Not seen. IMPRESSION: No acute abnormality. Findings as described. TECHNICAL DOCUMENTATION: JOB ID: [id number] [facility]- All Rights Reserved Rev-02/14 Reading location - IP/workstation name: [email or web address]
== END ==
LOC: RAD 16:33
PROVIDERS: ATTEND Internal Medicine
DX: N95.0 Postmenopausal bleeding (principal)
CPT/HCPCS: 76830; 93976

== ENCOUNTER → 2019-10-12 | Outpatient (CLI) | payer OTHER ==
--- NOTE | 2019-10-12 08:58 | WOMENS IMAGING REPORT ---
EXAM DESCRIPTION: BILAT DIAGNOSTIC MAMMO W/CAD COMPLETED DATE/TIME: 10/12/2019 8:47 am REASON FOR STUDY: N64.4 MASTODYNIA N64.4 MASTODYNIA COMPARISON: Priors back to 2013. EXAM PARAMETERS: Standard craniocaudal and mediolateral oblique views of each breast recorded using digital acquisition. Bilateral true lateral views. Read with the assistance of CAD: .[facility] - [employer] Version 9.2 LIMITATIONS: None. FINDINGS: RIGHT BREAST MASSES: No suspicious masses. CALCIFICATIONS: Stable benign faint calcifications. ARCHITECTURAL DISTORTION: None. ASYMMETRY: None noted. OTHER: No other significant findings. LEFT BREAST MASSES: No suspicious masses. CALCIFICATIONS: Stable benign faint calcifications. ARCHITECTURAL DISTORTION: None. ASYMMETRY: None noted. OTHER: No other significant finding. IMPRESSION: No worrisome mammographic findings. Breast pain is seldom associated with malignancy, p articularly when bilateral. Clinical followup and treatment of the patient's breast pain is appropri ate. Otherwise yearly screening mammography recommended. BREAST DENSITY: b. There are scattered areas of fibroglandular density. BIRAD: ASSESSMENT: 2 Benign findings. RECOMMENDATION: RECOMMENDED FOLLOW UP: As above. SPECIFIC INTERVENTION/IMAGING/CONSULTATION RECOMMENDED:No additional intervention/ imaging/consultati on needed at this time. COMMUNICATION:The negative/benign results were communicated to the patient. COMMENT: The patient has been notified of the results by letter per MQSA requirements. Additional no tification policies are in place for contacting patient with suspicious or incomplete findings. Quality ID #[id number]: The [employer] recommends an annual screening mammogram for women aged 40 years or over. This facility utilizes a reminder system to ensure that all patients receive reminder letters, and/or direct phone calls for appointments. This includes reminders for routine scr eening mammograms, diagnostic mammograms, or other Breast Imaging Interventions when appropriate. Th is patient will be placed in the appropriate reminder system. TECHNICAL DOCUMENTATION: FINDING NUMBER: (1) ASSESSMENT: (1) JOB ID: [id number] [employer]- All Rights Reserved Reading location - IP/workstation name: [email or web address]
== END ==
LOC: WI 08:30
PROVIDERS: ATTEND Internal Medicine
DX: N64.4 Mastodynia (principal)
CPT/HCPCS: 77066